=== PATIENT | male | born 1970 | race African-American/Black ===

== ENCOUNTER 2022-02-25 18:17 | Emergency (ER) | payer OTHER ==
[2022-02-25 18:30] VITALS: BP 169/109; PULSE 117; RESP 18; TEMP 98.1; BMI 26.3
[2022-02-25] MEDS ORDERED: KETOROLAC TROMETHAMINE 30 MG/1 ML VIAL IM ONE (20:07)
[2022-02-25] MEDS ORDERED: AMOXICILLIN 500 MG CAPSULE (FP) PO ONE (20:07)
[2022-02-25] MEDS ORDERED: AMOXICILLIN 500 MG CAPSULE (FP) ONE ×2 (20:28→20:33)
[2022-02-25] MEDS ORDERED: KETOROLAC TROMETHAMINE 30 MG/1 ML VIAL ONE ×2 (20:28→20:33)
== END 2022-02-25 21:06 | disposition home or self-care (01) ==
LOC: JERFT 18:17
PROC: 3E0233Z Introduction of Anti-inflammatory into Muscle, Percutaneous Approach (ICD-10-PCS; principal; 2022-02-25)
DX: K08.89 Other specified disorders of teeth and supporting structures (principal)
CPT/HCPCS: 99284-25

== ENCOUNTER 2022-02-26 03:16 | Emergency (ER) | payer OTHER ==
[2022-02-26 03:42] VITALS: BP 164/96; PULSE 105; RESP 19; TEMP 98.6; BMI 26.3
[2022-02-26] MEDS ORDERED: KETOROLAC TROMETHAMINE 15 MG/ML VIAL IM ONE (05:04)
[2022-02-26] MEDS ORDERED: KETOROLAC TROMETHAMINE 15 MG/ML VIAL ONE (05:10)
== END 2022-02-26 05:32 | disposition home or self-care (01) ==
LOC: JER 03:16
PROC: 3E0233Z Introduction of Anti-inflammatory into Muscle, Percutaneous Approach (ICD-10-PCS; principal; 2022-02-26)
DX: K02.9 Dental caries, unspecified (principal)
CPT/HCPCS: 99284-25